=== PATIENT | female | born 1990 | race Caucasian/White ===

== ENCOUNTER 2020-01-07 07:30 | Day surgery (SDC) | payer OTHER, SELFPAY ==
--- NOTE | 2020-01-06 14:19 | HO.ANESPROP2 ---
Documented by User: Layne Eugene 01/06/20 14:24 HPI - Anesthesia Eval Consult details Narrative: 29yo F for ESWL s/p cysto, stent with GA-LMA 4 PMFSH Past Medical History Medical History Anemia Anxiety Asthma Depression Migraines Murmur Renal stones Surgical History Surgical History S/P section Social History Social History Smoking Status: Never smoker Use of substances other than those prescribed or required for medical reasons: No Advance Directives: No Advance Directives Information Provided: Yes Meds Allergies Allergy/AdvReac Type Severity Reaction Status Date / Time No Known Allergies Allergy Unknown Unverified 12/04/19 15:51 [No Known Allergies*] Exam Exam Date and Time: January 06, 2020 1419 Pertinent Lab Results Pertinent Lab Results: Laboratory Tests 10/30/19 10/30/19 04:35 04:35 WBC 9.6 Hgb 12.2 Hct 37.2 Plt Count 227 Sodium 139 Potassium 4.2 Chloride 104 BUN 14 Creatinine 0.86 Assessment and Plan Assessment Anesthesia Assessment: Chart Reviewed Documented by User: Aga Haro 01/07/20 09:39 PMFSH Past Medical History Medical History Anemia Anxiety Asthma Depression Migraines Murmur Renal stones Surgical History Surgical History S/P section Social History Social History Smoking Status: Never smoker Use of substances other than those prescribed or required for medical reasons: No Advance Directives: No Advance Directives Information Provided: Yes Meds Allergies Allergy/AdvReac Type Severity Reaction Status Date / Time No Known Allergies Allergy Unknown Unverified 12/04/19 15:51 [No Known Allergies*] Exam Airway Mallampati Class: II TM Dist: >3cm Neck ROM: Full Assessment and Plan Assessment Anesthesia Assessment: Anesthesia Plan Discussed and Chart Reviewed Final Anesthetic Review NPO: Yes ASA Class: II Final Preanesthetic Review: No Changes in Pt Med Stat, Meds/Allgs Chart Reviewed, Consent Obtained/Reviewed and Anes Risks/Benef Reviewed Patient Risk: Low Procedure Risk: Low Assessment/Block/Sedation in SS: Assess/Block/Sedation-SS Anesthetic Plan Anesthetic Plan: MAC: Disposition: Standard PACU
--- NOTE | 2020-01-07 07:43 | XR_ITS ---
EXAMINATION: XR ABDOMEN KUB CLINICAL INDICATION: Pre-ESWL COMPARISON: CT of October 30, 2019 TECHNIQUE: AP view of the abdomen. FINDINGS: A right ureteral stent is seen in place. There is a 3 mm calculus seen overlying the location upper pole of the right kidney. A radiopaque calculus that was seen on CT scan in the distal right ureter is not definitely identified on this study. There is a 3 mm radiopaque density seen adjacent to the stent in the mid right ureter which may represent a calculus. No calculi seen overlying the expected location of the left kidney and ureter. Osseous structures unremarkable. No dilated loops of large or small bowel are evident. IMPRESSION: Right ureteral stent in place with 3 mm calculus seen overlying the upper pole of the right kidney. No definite radiopaque calculus is identified at the ureterovesical junction. There is question of a 3 mm calculus within the mid right ureter adjacent to the stent.
[2020-01-07 08:18] VITALS: BMI 32.5
[2020-01-07 08:21] VITALS: BP 114/73; PULSE 75; RESP 16; TEMP 36.2; O2SAT 98
[2020-01-07 08:25] LABS: UPreg QC Valid YES; Urine Pregnancy NEGATIVE (NEGATIVE)
[2020-01-07] MEDS: Lactated Ringers 1,000 ML 100 ML IVCONT (08:30)
--- NOTE | 2020-01-07 09:50 | MHC.SHP ---
Pre-Procedural Eval Section B Chief Complaint: RIGHT RENAL STONE Details of Present Illness: right renal stone with stent Relevant Family History (Specify if Yes): No Relevant Social History: None Present Medications: see Short Stay Collaborative assessment Medical History: No relevant PMH History of Previous Operations: Relevant previous surgery/procedure and date(s) Allergies: Allergies Allergy/AdvReac Type Severity Reaction Status Date / Time No Known Allergies Allergy Unknown Unverified 12/04/19 15:51 [No Known Allergies*] Plan Diagnosis/Plan: Unchanged Patient has been examined and remains a candidate for the planned procedure
[2020-01-07] MEDS: levoFLOXacin 500 MG TABLET PO (09:55)
--- NOTE | 2020-01-07 10:41 | PM.OP ---
Brief Operative Note Date of procedure: 01/07/20 Pre-op diagnosis: right ureteric and renal sytone Post-op diagnosis: same Procedure: 1) ESWL right ureter stone 2) ESWL right renal stone 3) cysto stent removal Surgeon: Isrrael Guillaume MD Anesthesia: MAC Estimated blood loss (mL): 0 Pathology: none sent Condition: stable Disposition: same day
[2020-01-07 10:42] VITALS: BP 100/57; PULSE 58; RESP 16; TEMP 36.6; O2SAT 97
--- NOTE | 2020-01-07 10:42 | W.PM.OPN ---
Operative Note Operative Note Narrative: PreOperative Diagnosis: right Renal stone and ureteric stone Post Operative Diagnosis: Right Renal stone and ureteric stone Procedure: right renal ESWL right ureteric ESWL Cysto right stent removal Surgeron: Dr Isrrael Guillaume Anesthesia: mac/sedation Indications for procedure: 29 yr female with right stent - right upper ureteric stone and right renal stone They understand ESWL may be a staged procedure and subsequent intervention may be required based on imaging after ESWL. They also understand there is a risk of bleeding, infection, damage to adjacent organs. Procedure: After informed consent was verified patient was brought to the operating room placed in supine position. Anesthesia was performed per protocol. Safety pause time-out was performed. Antibiotics have been given. ESWL was performed to ureteric stone. The 1st 500 shocks were performed at 60 hertz. This was performed with increasing power. Once maximum power was reached the rate was increased to 180 hertz. A total of 3000 shocks were given. Right ESWL performed on renal stone for 1500 shocks Cystoscopy with right stent removal performed They tolerated procedure well and was transferred to the recovery area upon completion.
[2020-01-07 10:56] VITALS: BP 115/76; PULSE 71; RESP 16; O2SAT 100
[2020-01-07] MEDS: Acetaminophen 325 MG TABLET 650 MG PO (11:02)
[2020-01-07] MEDS: oxyCODONE HCl Immed Release 5 MG TABLET PO (11:05)
[2020-01-07] MEDS: ondansetron HCL 4 MG/2 ML VIAL IVPUSH (11:05)
[2020-01-07 11:09] VITALS: BP 108/66; PULSE 56; RESP 16; O2SAT 100
[2020-01-07 11:24] VITALS: BP 113/63; PULSE 51; RESP 18; O2SAT 100
--- NOTE | 2020-01-07 11:55 | HO.POSTANES ---
Post Anesthesia Evaluation Post Anesthesia Evaluation Vital Signs: Vital Signs Temp Pulse Resp BP Pulse Ox 01/07/20 11:24 97.9 F 51 18 113/63 100 01/07/20 11:09 56 16 108/66 100 01/07/20 10:56 71 16 115/76 100 01/07/20 10:42 97.9 F 58 16 100/57 L 97 01/07/20 08:21 97.1 F 75 16 114/73 98 Anesthesia: Monitored Mental Status: Awake Pain Control: Satisfactory Nausea/Vomiting: None Hydration: Adequate Anesthesia-Related Issues: No Anes. Related Issues
== END 2020-01-07 12:40 | disposition home or self-care (01) ==
PROVIDERS: Nurse Practitioner; Visit Provider Urology
PROC: (CPT 50590; principal; 2020-01-07 09:10)
DX: N20.0 Calculus of kidney (principal); N20.1 Calculus of ureter; Z87.442 Personal history of urinary calculi
CPT/HCPCS: 50590; 52310; 74018; 81025; J2405; J3010

== ENCOUNTER 2020-05-04 13:16 | Outpatient (REF) | payer OTHER, SELFPAY | END 2020-05-04 13:17 | disposition home or self-care (01) | LOC: HO.LAB 13:16 | PROVIDERS: Visit Provider Internal Medicine | DX: Z20.822 Contact with and (suspected) exposure to COVID-19 (principal) | CPT/HCPCS: 36415; C9803; U0003; U0005 ==